=== PATIENT | male | born 2000 | race Caucasian/White ===

== ENCOUNTER 2023-08-12 02:01 | Emergency (ER) | payer BC ==
[2023-08-12] MEDS ORDERED: Lidocaine 2% Viscous 10 mL, Alum & Magn 30 mL SSW SCH (02:45)
== END 2023-08-12 03:35 | disposition home or self-care (01) ==
LOC: CSHERS 02:01
DX: R07.2 Precordial pain (principal); Z75.3 Unavailability and inaccessibility of health-care facilities
CPT/HCPCS: 71045